=== PATIENT | male | born 1995 | race Caucasian/White ===

== ENCOUNTER 2016-04-27 08:38 | Emergency (ER) | payer SELFPAY ==
[~2016-04-27] VITALS: Ht 182.9 cm; Wt 94.3 kg
[2016-04-27 08:50] VITALS: BP 148/89
[2016-04-27] MEDS ORDERED: PRED20TA PO (10:13)
[2016-04-27] MEDS ORDERED: PROAIR HFA8.5 GM INH (10:13)
--- NOTE | 2016-04-27 10:13 | PHYS DOC ---
Past Medical History Past Medical History: Hypertension Past Surgical History: Other Additional Past Surgical Histo: Fx R)foot with repair from [facility]. Additional Information: "Sometimes," smokes. Alcohol Use: None Drug Use: None Adult General Chief Complaint Chief Complaint: NAUSEA/VOMITING/DIARRHA HPI HPI Patient is a 20 year old male who presents with sore throat and fever for 2 days. He initially had nausea with vomiting but reports that this is now resolved. He continues to have nasal congestion and productive cough as well. He denies otalgia, dyspnea, or abdominal pain. Patient states that he is here for a note to clear him to return to work. His PCP is Dr. Greene. Review of Systems Review of Systems Constitutional: Reports Fever. Eyes: Denies change in visual acuity, redness, or eye pain. [] HENT: Denies ear pain. Reports nasal congestion and sore throat. Respiratory: Denies shortness of breath. Reports productive cough. Cardiovascular: Denies chest pain, palpitations or edema. [] GI: Denies abdominal pain, bloody stools or diarrhea. Reports nausea and vomiting, now resolved. : Denies dysuria, hematuria or urinary frequency. [] Musculoskeletal: Denies back pain or joint pain. [] Integument: Denies rash or skin lesions. [] Neurologic: Denies headache, focal weakness or sensory changes. [] Endocrine: Denies polyuria or polydipsia. [] Psych: Denies anxiety or depression. [] All systems reviewed and negative unless otherwise stated in the HPI. Allergies Allergies Allergies Coded Allergies Type Severity Reaction Last Updated Verified No Known Drug Allergies 04/27/16 No Physical Exam Physical Exam Constitutional: Well developed, well nourished, no acute distress, non-toxic appearance. [] HENT: Normocephalic, atraumatic, bilateral external ears normal, oropharynx moist, no oral exudates, nose normal. Bilateral TMs without erythema or bulging. There is no posterior pharyngeal erythema or tonsillar edema. Eyes: PERRLA, EOMI, conjunctiva normal, no discharge. [] Neck: Normal range of motion, no tenderness, supple, no stridor. [] Cardiovascular: Heart rate regular rhythm, no murmur [] Lungs & Thorax: Bilateral breath sounds clear to auscultation without wheezes, rales, or rhonchi. Abdomen: Bowel sounds normal, soft, no tenderness, no masses, no pulsatile masses. [] Skin: Warm, dry, no erythema, no rash. [] Neurologic: Alert and oriented X 3, normal motor function, normal sensory function, no focal deficits noted. [] Psychologic: Affect normal, judgement normal, mood normal. [] Current Patient Data Vital Signs Vital Signs Date Time Temp Pulse Resp B/P Pulse Ox O2 Delivery O2 Flow Rate FiO2 04/27/16 08:50 98.2 83 20 98 Room Air 98.2 Lab Values Laboratory Tests Test 04/27/16 09:35 Group A Streptococcus Rapid Negative (NEGATIVE) Microbiology 04/27/16 Throat Culture - Preliminary, Resulted 04/27/16 - Preliminary, Resulted EKG EKG [] Radiology/Procedures Radiology/Procedures [] Course & Med Decision Making Course & Med Decision Making Pertinent Labs and Imaging studies reviewed. (See chart for details) Rapid strep negative. Patient is given a work note to return to work today without restrictions. Dragon Disclaimer Dragon Disclaimer This electronic medical record was generated, in whole or in part, using a voice recognition dictation system. Departure Departure Impression: Primary Impression: URI (upper respiratory infection) Disposition: HOME, SELF-CARE Condition: STABLE Referrals: JITENDRA GREENE MD (PCP) Patient Instructions: Upper Respiratory Infection, Adult, [id number] Additional Instructions: Your strep test was negative today. Please complete all the prescribed steroids to help with your upper respiratory symptoms. Please use the prescribed inhaler as needed for cough or shortness of breath. Do not use more often than directed. Please follow-up with your doctor if your symptoms continue. Return to the emergency department if you have any new or concerning symptoms. Scripts Prednisone 20 Mg Usetuf09 Mg PO DAILY 5 Days Prov:SHANIQUA VILLALTA 04/27/16 Albuterol Sulfate (Proair Hfa Inhaler)8.5 Gm [id number] Puff INH Q4HRS PRN SHORTNESS OF BREATH #1 INHALER Prov:SHANIQUA VILLALTA 04/27/16 Problem Qualifiers Primary Impression: URI (upper respiratory infection) URI type: unspecified viral URI Qualified Code: J06.9 - Acute upper respiratory infection, unspecified SHANIQUA VILLALTA Apr 27, 2016 10:13
[2016-04-27 10:56] LABS: NEGATIVE OBC STREP NEG; POSITIVE OBC STREP POS
== END 2016-04-27 10:18 | disposition home or self-care (01) ==
LOC: ER 08:38
DX: J06.9 Acute upper respiratory infection, unspecified (principal); I10 Essential (primary) hypertension; F17.200 Nicotine dependence, unspecified, uncomplicated
CPT/HCPCS: 87070; 87880; 99283